=== PATIENT | female | born 1950 | race Caucasian/White ===

== ENCOUNTER 2018-06-03 12:26 | Emergency (ER) | payer MEDICARE ==
[~2018-06-03] VITALS: Ht 170.2 cm; Wt 67.6 kg
--- OUTSIDE RECORDS SUMMARY | 2018-06-03 12:30 | XMS ---
PreManage Notification: AINSLYE FRANCOIS Security Creative Services Manager Events No recent Security Events currently on file CRITERIA MET - POL CARE PROVIDERS There are no care providers on record at this time. Jamil has no Care Guidelines for this patient. Viktoriya VISIT COUNT (12 MO.) 1 TEOFILO Lopez TOTAL 1 NOTE: Visits indicate total known visits. ED/C VISIT TRACKING (12 MO.) 06/03/2018 12:26 [facility] [place] TYPE: Emergency COMPLAINT: - STROKE SYMPTOMS INPATIENT VISIT TRACKING (12 MO.) No inpatient visits to display in this time frame [id number]
[2018-06-03] MEDS ORDERED: ASPIRIN81 MG PO (13:39)
[2018-06-03] MEDS ORDERED: ESTRACE TOP (13:40)
[2018-06-03] MEDS ORDERED: METOPROLOL SUCC25 MG PO (13:41)
--- NOTE | 2018-06-03 15:01 | NUR ---
WAS CALLED IN FOR PT HAVING STROKE SYMPTOMS. I WAS TOLD UPON ARRIVAL THAT FAMILY HAD BEEN NOTIFIED, I DECIDED I WOULD CALL FAMILY ANY WAYS TO GET ETA. FAMILY HAD NOT BEEN NOTIFIED AND CAME TO THE HOSPITAL IMMEDIATELY. PT WAS TRANSFERRED VIA [facility]. I GAVE THE FAMILY DIRECTIONS TO THE HOSPITAL THAT PT IS BEING TRANSFERRED TO WELL A [facility] PACK LIST. PT ASKED THAT HER HUMAN FACTORS ADVISOR LEAD, DAVID, AT [facility] BE NOTIFIED OF HER CONDITION. I WAS ABLE TO MAKE CONTACT WITH THE CONGREGATIONAL AND LET THEM KNOW THAT SHE WAS BEING SENT TO A HOSPITAL IN [place]. THEY STATED THAT THEY WOULD FOLLOW UP WITH FAMILY.
--- NOTE | 2018-06-03 22:18 | EKG ---
[facility] [address] [facility] [place], [place] [address] Signed Normal sinus rhythm Normal ECG No previous ECGs available Confirmed by YANET SHERMAN DO ([id number]) on 06/03/2018 10:18:43 PM Electronically Signed By: YANET SHERMAN DO 06/03/18 2218 PATIENT NAME: AINSLEY FRANCOIS Electrocardiogram DATE OF : 46 PHYSICIAN: YANET SHERMAN DO REPORT #: [id number] REPORT IS CONFIDENTIAL AND NOT TO BE RELEASED WITHOUT AUTHORIZATION
== END 2018-06-03 15:14 | disposition short-term general hospital (02) ==
LOC: ED 12:26
PROC: 0T9B70Z Drainage of Bladder with Drainage Device, Via Natural or Artificial Opening (ICD-10-PCS; principal; 2018-06-03)
PROC: 4A0D7LZ Measurement of Urinary Volume, Via Natural or Artificial Opening (ICD-10-PCS; 2018-06-03)
DX: I63.9 Cerebral infarction, unspecified (principal); I48.91 Unspecified atrial fibrillation; Z87.891 Personal history of nicotine dependence; Z91.040 Latex allergy status; Z79.82 Long term (current) use of aspirin; Z79.899 Other long term (current) drug therapy
CPT/HCPCS: 51702; 51798; 70450; 70496; 70498; 71045; 80053; 84484; 85025; 85610; 85730; 93005; 93010; 96374; 99285-25; J2997; Q9967

== ENCOUNTER 2018-06-26 07:45 | Emergency (ER) | payer MEDICARE ==
[~2018-06-26] VITALS: Ht 170.2 cm; Wt 68.0 kg
[~2018-06-26 07:45] MED LIST: ASPIRIN81 MG PO; ESTRACE TOP; METOPROLOL SUCC25 MG PO
--- OUTSIDE RECORDS SUMMARY | 2018-06-26 07:48 | XMS ---
PreManage Notification: AINSLEY FRANCOIS Security Felt Cementer Events No recent Security Events currently on file CRITERIA MET - [facility] - 2 Visits in 30 Days CARE PROVIDERS UGO FRIAS [facility] 06/03/2018-Current PHONE: [phone] Jamil has no Care Guidelines for this patient. Viktoriya VISIT COUNT (12 MO.) [address] [facility] [place] [facility] TOTAL 2 NOTE: Visits indicate total known visits. ED/UCC VISIT TRACKING (12 MO.) 06/26/2018 07:46 [facility] [place] TYPE: Emergency COMPLAINT: - STROKE SYMPTOMS 06/03/2018 12:26 [facility] [place] TYPE: Emergency COMPLAINT: - STROKE SYMPTOMS DIAGNOSES: - Latex allergy status - residential (current) use of aspirin - Weakness - Unspecified atrial fibrillation - Personal history of nicotine dependence - Cerebral infarction, unspecified - Other oil heaterman (current) drug therapy INPATIENT VISIT TRACKING (12 MO.) 06/03/2018 17:56 [facility] [place] TYPE: Neuro Surgery DIAGNOSES: - Cerebral infarction due to unspecified occlusion or stenosis of right middle cerebral artery - Paroxysmal atrial fibrillation - Cerebral infarction, unspecified 06/03/2018 16:45 [facility] [place] TYPE: Surgery DIAGNOSES: - Cerebral infarction due to thrombosis of unspecified precerebral artery [id number]
[2018-06-26] MEDS ORDERED: ASPIRIN325 MG PO (08:02)
[2018-06-26] MEDS ORDERED: FLECAINIDE ACET50 MG PO (08:03)
[2018-06-26] MEDS ORDERED: METOPROLOL SUCC25 MG PO (08:04)
[2018-06-26] MEDS ORDERED: LIPITOR10 MG PO (08:05)
--- NOTE | 2018-06-26 12:57 | EKG ---
[facility] [address] [facility] [place], [place] [address] Signed Sinus bradycardia with marked sinus arrhythmia with 1st degree AV block Otherwise normal ECG When compared with ECG of 03-JUN-2018 13:04, No significant change was found Confirmed by KIAH POSADA MD ([id number]) on 06/26/2018 12:57:32 PM Electronically Signed By: KIAH POSADA MD 06/26/18 1257 PATIENT NAME: AINSLEY FRANCOIS Electrocardiogram DATE OF : 46 PHYSICIAN: KIAH POSADA MD REPORT #: [id number] REPORT IS CONFIDENTIAL AND NOT TO BE RELEASED WITHOUT AUTHORIZATION
== END 2018-06-26 08:35 | disposition home or self-care (01) ==
LOC: ED 07:45
DX: I10 Essential (primary) hypertension (principal); I48.91 Unspecified atrial fibrillation; Z86.73 Personal history of transient ischemic attack (TIA), and cerebral infarction without residual deficits; Z87.891 Personal history of nicotine dependence; Z91.040 Latex allergy status; Z79.82 Long term (current) use of aspirin; Z79.899 Other long term (current) drug therapy
CPT/HCPCS: 93005; 93010; 99283-25

== ENCOUNTER 2018-08-15 05:23 | Emergency (ER) | payer MEDICARE ==
[~2018-08-15] VITALS: Ht 170.2 cm; Wt 68.0 kg
--- OUTSIDE RECORDS SUMMARY | ~2018-08-15 | XMS | Encounter Summary ---
Demographics + + + | Address | [address] | | | [place] [address] | + + + | Home Phone | | + + + | Preferred Language | Unknown | + + + | Marital Status | | + + + | Restorationist Affiliation | Unknown | + + + | Race | Unknown | + + + | Ethnic Group | Unknown | + + + Author + + + | Author | [facility] [employer] [facility] | + + + | Organization | [facility] [employer] [facility] | + + + | Address | Unknown | + + + | Phone | Unavailable | + + + Support + + + + + | Name | Relationship | Address | Phone | + + + + + | Parker Myles | ECON | [address] | | | | | [place] | | | | | [address] | | + + + + + Care Team Providers + +------+ + | Care Director Embalmer Name | Role | Phone | + +------+ + | Bc Cano MD | PCP | | + +------+ + Reason for Visit + + + | Reason | Comments | + + + | Atrial Fibrillation | | + + + Encounter Details +--------+ + + + + | Date | Type | Department | Care Team | Description | +--------+ + + + + | 01/29/ | Telephone | [facility] | Noemy Bae DO | Atrial Fibrillation | | 2019 | | Cardiology [facility] | [address] | | | | | [address] | [place], [place] | | | | | [place], [place] | [address] | | | | | [address] | | | | | | [phone] | | | +--------+ + + + + Social History + +-------+ +--------+ + | Tobacco Use | Types | Packs/Day | Years | Date | | | | | Used | | + +-------+ +--------+ + | Former Smoker | | 0.5 | 5 | Quit: 1972 | + +-------+ +--------+ + + +---+---+---+ | Smokeless Tobacco: | | | | | Never Used | | | | + +---+---+---+ + + | Comments: QUIT SMOKING CIGARETTES IN 1971 | + + + + +---------+ + | Alcohol Use | Drinks/We | oz/Week | Comments | | | ek | | | + + +---------+ + | No | | | | + + +---------+ + + + + | Sex Assigned at | Date Recorded | | | | + + + | Not on file | | + + + as of this encounter Plan of Treatment +--------+---------+ + + + | Date | Type | Specialty | Care Team | Description | +--------+---------+ + + + | 08/22/ | Office | Cardiology | Abran Herzog, | | | 2018 | Visit | | MD [address] | | | | | | [place], | | | | | | [place] [address] | | | | | | [phone] | | | | | | | | +--------+---------+ + + + as of this encounter Visit Diagnoses Not on filein this encounter"
--- OUTSIDE RECORDS SUMMARY | ~2018-08-15 | XMS | Encounter Summary ---
Demographics + + + | Address | [address] | | | [place] [address] | + + + | Home Phone | | + + + | Preferred Language | Unknown | + + + | Marital Status | | + + + | Mu-Ism Affiliation | Unknown | + + + | Race | Unknown | + + + | Ethnic Group | Unknown | + + + Author + + + | Author | [facility] | + + + | Organization | [facility] | + + + | Address | Unknown | + + + | Phone | Unavailable | + + + Support + + + + + | Name | Relationship | Address | Phone | + + + + + | Parker Myles | ECON | [address] | | | | | [place] | | | | | [address] | | + + + + + Care Team Providers + +------+ + | Care Buffing Wheel Former Machine Name | Role | Phone | + +------+ + | Bc Cano MD | PCP | | + +------+ + Reason for Visit + + + | Reason | Comments | + + + | Cardiac Event | end of study | | Monitor | | + + + Encounter Details +--------+ + + + + | Date | Type | Department | Care Team | Description | +--------+ + + + + | 01/24/ | Documentati | [facility] | Herberreji Paola R, | Cardiac Event | | 2019 | on Only | Cardiology [place] | RT | Monitor (end of | | | | [address] | | study) | | | | [place], [place] | | | | | | [address] | | | | | | [phone] | | | +--------+ + + + [...] + + + as of this encounter Progress Notes Paola Bal RT - 06/23/2018 11:59 PM PST Cardiac Centerpuncher Date of Event Monitor: 06/23/18 Referring Physician: Alyssa Patient:Christina Myles : 1950 Age: 67 y.o. female INDICATIONS: Paroxysmal Atrial fibrillation. Associated attestation - Abran Herzog MD - 07/27/2018 1:11 PM PSTA cardiac rhythm anal ysis was performed on 2 leads for 30 days, corresponding to > 2.4 million beats. During the monitored time period, 97.16% of the total recording yielded tracings that were capable of b eing analyzed, which showed the following: The predominant rhythm was atrial fibrillation, with an overall burden of 73.57% (atrial fl utter very briefly on 07/22/18), with an average ventricular rate of 94 bpm, ranging from 52 - 153 bpm. A normal circadian rhythm was seen. A rapid ventricular rate was present for 22% the recording, with ventricular rates > 120 bpm present for 12% of the time, and ventricula r rates in excess of 140 bpm present for 2% of the recording. Sinus rhythm was present for 22.56% of the time. The average rate was 58 bpm. Sinus adalid cardia was present for 14.6% of the recording, with heart rates < 50 bpm present for 1% the recording. There was no evidence of atrioventricular block. No clinically significant pauses were note d, although there were a total of 1009 pauses greater than 2 seconds, to a maximum of 3.6 se conds, with 5 other pauses of 3.0 - 3.2 seconds duration, all in the setting of atrial fibri llation. There were 377 isolated PVCs, with an overall ventricular ectopy burden of < 0.01%. There were no complex ventricular arrhythmias noted. There were 29,237 isolated PACs, with an overall atrial ectopic rhythm burden of 0.93%. Th ere were 339 atrial couplets and 20 atrial triplets. There were 38 runs of paroxysmal atrial tachycardia during the monitored time period, the maximum duration of which was 15 consecut gilberto beats, at a rate of 98 bpm. The maximum recorded heart rate during any of these runs was a 7 beat run at a rate of 161 bpm. There were 6067 PACs in the setting of atrial bigeminy, and 1794 in atrial trigeminy. 7 episodes of symptoms were reported during the monitored time period, including 2 episodes of palpitations, one corresponding to atrial fibrillation and one to NSR. There was 1 epis ode of "fluttering", corresponding to atrial fibrillation. Atrial fibrillation was also see n with reported symptoms of SOB and fatigue. However, none of these symptomatic episodes oc curred with rapid ventricular rates, as the above corresponded to rates of 85 - 98 bpm. 2 o ther episodes of "headache" and "other" corresponded to sinus rhythym. No significant ST segment abnormalities were noted. CONCLUSION: This is an abnormal 30 day event monitor recording, with paroxysmal atrial fib rillation, and a high overall burden of 73.6%, but a predominantly well controlled ventricul ar rate. Sinus rhythm, predominantly sinus bradycardia, was present for 22.6% of the time. There were clinically insignificant (< 5 seconds) pauses during periods of atrial fibrillat ion. Her 7 episodes of reported symptoms did not clearly correlate with atrial fibrillation , as 3 of the 7 occurred in sinus rhythm. in this encounter Plan of Treatment +--------+---------+ + + + | Date | Type | Specialty | Care Team | Description | +--------+---------+ + + + | 08/22/ | Office | Cardiology | Abran Herzog, | | | 2018 | Visit | | MD [address] | | | | | | [place], | | | | | | [place] [address] | | | | | | [phone] | | | | | | | | +--------+---------+ + + + as of this encounter Visit Diagnoses + + | Diagnosis | + + | Paroxysmal atrial fibrillation (HCC) - Primary | + + | Atrial fibrillation | + +
--- OUTSIDE RECORDS SUMMARY | ~2018-08-15 | XMS | Clinical Summary ---
Demographics + + + | Address | [address] | | | [place] [address] | + + + | Home Phone | | + + + | Preferred Language | Unknown | + + + | Marital Status | | + + + | Zoroastrianism Affiliation | Unknown | + + + | Race | Unknown | + + + | Ethnic Group | Unknown | + + + Author + + + | Author | [facility] | | | [facility] [place] | + + + | Organization | [facility] | | | [facility] [place] | + + + | Address | Unknown | + + + | Phone | Unavailable | + + + Support + + + + + | Name | Relationship | Address | Phone | + + + + + | GEORGE FRANCOIS | ECON | Unknown | | + + + + + | Parker Francois | ECON | [address] | | | | | [place] | | | | | [address] | | + + + + + Care Team Providers + +------+ + | Care Embryology Teacher Name | Role | Phone | + +------+ + PP | Unavailable | + +------+ + Allergies Not on File Current Medications Not on file Active Problems Not on file Social History + +-------+ +--------+------+ | Tobacco Use | Types | Packs/Day | Years | Date | | | | | Used | | + +-------+ +--------+------+ | Never Assessed | | | | | + +-------+ +--------+------+ + + + | Sex Assigned at | Date Recorded | | | | + + + | Not on file | | + + + Plan of Treatment + + + + + | Health Maintenance | Due Date | Last Done | Comments | + + + + + | Vaccine: | | | | | Dtap/Tdap/Td (1 - | 8 | | | | Tdap) | | | | + + + + + | Vaccine: Zoster (1 | | | | | of 2) | 9 | | | + + + + + | Vaccine: | | | | | Pneumococcal 65+ | 4 | | | | Low/Medium Risk (1 | | | | | of 2 - PCV13) | | | | + + + + + | Vaccine: Influenza | | | | | (#1) | 8 | | | + + + + + Results Not on filefrom Last 3 Months"
--- OUTSIDE RECORDS SUMMARY | ~2018-08-15 | XMS | Encounter Summary ---
Demographics + + + | Address | [address] | | | [place] [address] | + + + | Home Phone | | + + + | Preferred Language | Unknown | + + + | Marital Status | | + + + | Shinto Affiliation | Unknown | + + + | Race | Unknown | + + + | Ethnic Group | Unknown | + + + Author + + + | Author | [facility] | + + + | Organization | [facility] | + + + | Address | Unknown | + + + | Phone | Unavailable | + + + Support + + + + + | Name | Relationship | Address | Phone | + + + + + | Parker Myles | ECON | [address] | | | | | [place] | | | | | [address] | | + + + + + Care Team Providers + +------+ + | Care Clinical Data Programmer Name | Role | Phone | + [...] 01/24/ | Documentati | [facility] | Herbererji Paola R, | Cardiac Event | | 2019 | on Only | Cardiology [place] | RT | Monitor (end of | | | | [address] | | study) | | | | [place], [place] | | | | | | [address] | | | | | | [phone] | | | +--------+ + + + [...] RT - 06/23/2018 11:59 PM PST Cardiac B2B Sales Professional Date of Event Monitor: 06/23/18 Referring Physician: [...] | | | | | | [place] [address] | | | | | | [phone] | | | | | | | | +--------+---------+ + + + as of this encounter Visit Diagnoses + + | Diagnosis | + + | Paroxysmal atrial fibrillation (HCC) - Primary | + + | Atrial fibrillation | + +
--- OUTSIDE RECORDS SUMMARY | ~2018-08-15 | XMS | Encounter Summary ---
Demographics + + + | Address | [address] | | | [place] [address] | + + + | Home Phone | | + + + | Preferred Language | Unknown | + + + | Marital Status | | + + + | Mu-Ism Affiliation | Unknown | + + + | Race | Unknown | + + + | Ethnic Group | Unknown | + + + Author + + + | Author | [facility] | + + + | Organization | [facility] | + + + | Address | Unknown | + + + | Phone | Unavailable | + + + Support + + + + + | Name | Relationship | Address | Phone | + + + + + | Parker Myles | ECON | [address] | | | | | [place] | | | | | [address] | | + + + + + Care Team Providers + +------+ + | Care Network Pricing Consultant Name | Role | Phone | + +------+ + | Bc Cano MD | PCP | | + +------+ + Reason for Visit +--------+ + | Reason | Comments | +--------+ + | Other | [facility] | +--------+ + Encounter Details +--------+ + + + + | Date | Type | Department | Care Team | Description | +--------+ + + + + | 06/14/ | Documentati | [facility] [place] | Wendi Lynn MA | Other ([facility] | | 2019 | on Only | [facility] | | Family MED ) | | | | [address] | | | | | | [facility] [place] | | | | | | [address] | | | | | | [phone] | | | +--------+ + + + [...] + | Comments: QUIT SMOKING CIGARETTES IN 1972 | + + + + +---------+ + [...] Cardiology | Abran Herzog, | | | 2019 | Visit | | MD [address] | | | | | | [place], | | | | | | [place] [address] | | | | | | [phone] | | | | | | | | +--------+---------+ + + + as of this encounter Visit Diagnoses Not on filein this encounter"
--- OUTSIDE RECORDS SUMMARY | ~2018-08-15 | XMS | Encounter Summary ---
Demographics + + + | Address | [address] | | | [place] [address] | + + + | Home Phone | | + + + | Preferred Language | Unknown | + + + | Marital Status | | + + + | Confucianist Affiliation | Unknown | + + + | Race | Unknown | + + + | Ethnic Group | Unknown | + + + Author + + + | Author | [facility] | + + + | Organization | [facility] | + + + | Address | Unknown | + + + | Phone | Unavailable | + + + Support + + + + + | Name | Relationship | Address | Phone | + + + + + | Parker Myles | ECON | [address] | | | | | [place] | | | | | [address] | | + + + + + Care Team Providers + +------+ + | Care Emt B Name | Role | Phone | + +------+ + | Bc Cano MD | PCP | | + +------+ + Reason for Visit + + + | Reason | Comments | + + + | Cardiac Event | 30 days | | Monitor | | + + + Holter (Routine) +--------+--------+ + + + + | Status | Reason | Specialty | Diagnoses / | Referred By | Referred To | | | | | Procedures | Contact | Contact | +--------+--------+ + + + + | Closed | | Cardiology | Diagnoses | [place], | [facility] | | | | | 30 days | Abran Clark, | Cardiology | | | | | Procedures | MD [address] | | | | | ND XTRNL PT | [address] | [address] | | | | | ACTIVTD ECG | [address] | [address] | | | | | DWNLD W/R&I | [place], [place] | [place], | | | | | </30 DAYS | [address] | [place] [address] | | | | | ND EXT | Phone: | Phone: | | | | | ECG,PT | [phone] | [phone] | | | | | DEMAND | Fax: | Fax: | | | | | EVENT, SYMPT | [phone] | [phone] | | | | | MEMORY | | | | | | | LOOP, RECORD | | | | | | | ND XTRNL | | | | | | | MOBILE CV | | | | | | | TELEMETRY | | | | | | | W/I&REPORT | | | | | | | 30 DAYS CRD | | | | | | | EVENT | | | | | | | MONITOR | | | +--------+--------+ + + + + Encounter Details +--------+ + + + + | Date | Type | Department | Care Team | Description | +--------+ + + + + | 06/23/ | Documentati | [facility] | Abran Herzog, | Cardiac Event | | 2019 | on Only | Cardiology [place] | MD [address] | Monitor (30 days ) | | | | [address] | [place], | | | | | [facility] [address] | [place] [address] | | | | | [place] [address] | [phone] | | | | | [phone] | | | | | | | Elmira Sierra, | | | | | | MA | | +--------+ + + + + [...] + as of this encounter Progress Notes Elmira Sierra MA - 06/23/2018 4:00 PM PST30 day catalyst supervisor placed on patient. E OB/Billing information discussed. Instructions given and understood. Patient instructed to call Sun Number for any billing or monitor questions. in this encounter Plan of Treatment +--------+---------+ + + + | Date | Type | Specialty | Care Team | Description | +--------+---------+ + + + | 08/22/ | Office | Cardiology | Abran Herzog, | | | 2018 | Visit | | MD [address] | | | | | | [place], | | | | | | [place] [address] | | | | | | [phone] | | | | | | | | +--------+---------+ + + + as of this encounter Visit Diagnoses + + | Diagnosis | + + | Paroxysmal atrial fibrillation (HCC) | + + | Atrial fibrillation | + + | Cerebrovascular accident (CVA) due to embolism of right middle cerebral artery (HCC) | + +"
--- OUTSIDE RECORDS SUMMARY | ~2018-08-15 | XMS | Encounter Summary ---
Demographics + + + | Address | [address] | | | [place] [address] | + + + | Home Phone | | + + + | Preferred Language | Unknown | + + + | Marital Status | | + + + | Church Affiliation | Unknown | + + + | Race | Unknown | + + + | Ethnic Group | Unknown | + + + Author + + + | Author | [facility] | + + + | Organization | [facility] | + + + | Address | Unknown | + + + | Phone | Unavailable | + + + Support + + + + + | Name | Relationship | Address | Phone | + + + + + | Parker Myles | ECON | [address] | | | | | [place] | | | | | [address] | | + + + + + Care Team Providers + +------+ + | Care Mold Cleaner Name | Role | Phone | + [...] + | 06/14/ | Documentati | [facility] [place] | Wendi Lynn MA | Other ([facility] | | 2019 | on Only | [facility] | | Family MED ) | | | | [address] | | | | | | [facility] [place] | | | | | | [address] | | | | | | [phone] | | | +--------+ + + + [...] [place], | | | | | | [place] [address] | | | | | | [phone] | | | | | | | | +--------+---------+ + + + as of this encounter Visit Diagnoses Not on filein this encounter"
--- OUTSIDE RECORDS SUMMARY | ~2018-08-15 | XMS | Encounter Summary ---
Demographics + + + | Address | [address] | | | [place] [address] | + + + | Home Phone | | + + + | Preferred Language | Unknown | + + + | Marital Status | | + + + | Taoist Affiliation | Unknown | + + + | Race | Unknown | + + + | Ethnic Group | Unknown | + + + Author + + + | Author | [facility] | + + + | Organization | [facility] | + + + | Address | Unknown | + + + | Phone | Unavailable | + + + Support + + + + + | Name | Relationship | Address | Phone | + + + + + | Parker Myles | ECON | [address] | | | | | [place] | | | | | [address] | | + + + + + Care Team Providers + +------+ + | Care Controlled Area Checker Name | Role | Phone | + +------+ + | Bc Cano MD | PCP | | + +------+ + Encounter Details +--------+ + + + + | Date | Type | Department | Care Team | Description | +--------+ + + + + | 06/27/ | Telephone | [facility] | Noemy Bae DO | | | 2019 | | [facility] | [address] | | | | | CARDIOLOGY [address] | [place] | | | | | Yana Crespo | [id number] | | | | | [place] [address] | | | | | | [phone] | | | +--------+ + + + [...] | | | | | | [place] [address] | | | | | | [phone] | | | | | | | | +--------+---------+ + + + as of this encounter Visit Diagnoses Not on filein this encounter"
--- OUTSIDE RECORDS SUMMARY | ~2018-08-15 | XMS | Encounter Summary ---
Demographics + + + | Address | [address] | | | [place] [address] | + + + | Home Phone | | + + + | Preferred Language | Unknown | + + + | Marital Status | | + + + | Episcopalian Affiliation | Unknown | + + + | Race | Unknown | + + + | Ethnic Group | Unknown | + + + Author + + + | Author | [facility] | + + + | Organization | [facility] | + + + | Address | Unknown | + + + | Phone | Unavailable | + + + Support + + + + + | Name | Relationship | Address | Phone | + + + + + | Parker Myles | ECON | [address] | | | | | [place] | | | | | [address] | | + + + + + Care Team Providers + +------+ + | Care Certified Green Building Engineer Name | Role | Phone | + +------+ + | Bc Cano MD | PCP | | + +------+ + Reason for Visit +--------+ + | Reason | Comments | +--------+ + | Other | [facility] | +--------+ + Encounter Details +--------+ + + + + | Date | Type | Department | Care Team | Description | +--------+ + + + + | 07/06/ | Documentati | [facility] | Stephenie Pichardo, | Other ([facility] | | 2019 | on Only | Cardiology Saima | VICE PRESIDENT OF FINANCE | Family Medicine) | | | | [address] | | | | | | [place] | | | | | | [address] | | | | | | [phone] | | | +--------+ + + + [...] [place], | | | | | | [place] [id number] | | | | | | [phone] | | | | | | | | +--------+---------+ + + + as of this encounter Visit Diagnoses Not on filein this encounter"
--- OUTSIDE RECORDS SUMMARY | ~2018-08-15 | XMS | Encounter Summary ---
Demographics + + + | Address | [address] | | | [place] [address] | + + + | Home Phone | | + + + | Preferred Language | Unknown | + + + | Marital Status | | + + + | Pentecostal Affiliation | Unknown | + + + | Race | Unknown | + + + | Ethnic Group | Unknown | + + + Author + + + | Author | [facility] | + + + | Organization | [facility] | + + + | Address | Unknown | + + + | Phone | Unavailable | + + + Support + + + + + | Name | Relationship | Address | Phone | + + + + + | Parker Myles | ECON | [address] | | | | | [place] | | | | | [address] | | + + + + + Care Team Providers + +------+ + | Care Scrap Iron Loader Name | Role | Phone | + +------+ + | Bc Cano MD | PCP | | + +------+ + Reason for Visit + + + | Reason | Comments | + + + | Establish Care | paroxysmal atrial fib | + + + Consultation (Routine) + +--------+ + + + + | Status | Reason | Specialty | Diagnoses / | Referred By | Referred To | | | | | Procedures | Contact | Contact | + +--------+ + + + + | Authorized | | Cardiology | Diagnoses | [facility], | Alsam[place], | | | | | Paroxysmal | Bc Wilson, | MD Joseph | | | | | atrial | [address] | [address] | | | | | fibrillation | [address] | Dr Becerril | | | | | ([facility]) | [place], | [place], [place] | | | | | Procedures | [place] [address] | [address] Phone: | | | | | Consult | Phone: | [phone] | | | | | | [phone] | Fax: | | | | | | Fax: | [phone] | | | | | | [phone] | | + +--------+ + + + + Encounter Details +--------+ + + + + | Date | Type | Department | Care Team | Description | +--------+ + + + + | 06/14/ | Initial | [facility] | Abran Herzog, | Paroxysmal atrial | | 2019 | consult | Cardiology Jeanette | [address] | fibrillation (HCC) | | | | [address] [facility] [address] | [place], | (Primary Dx); | | | | [place] [address] | [place] [address] | Cerebrovascular | | | | [place] [address] | [phone] | accident (CVA) due | | | | [phone] | | to embolism of right | | | | | | middle cerebral | | | | | | artery (HCC) | +--------+ + + + + Social [...] + + + as of this encounter Last Filed Vital Signs + + + + | Vital Sign | Reading | Time Taken | + + + + | Blood Pressure | 98/56 | 06/14/2018 2:16 PM PST | + + + + | Pulse | 60 | 06/14/2018 2:10 PM PST | + + + + | Temperature | - | - | + + + + | Respiratory Rate | - | - | + + + + | Oxygen Saturation | 100% | 06/14/2018 2:10 PM PST | + + + + | Inhaled Oxygen | - | - | | Concentration | | | + + + + | Weight | 71.3 kg (157 lb 3.2 | 06/14/2018 2:10 PM PST | | | oz) | | + + + + | Height | 168.9 cm (5' 6.5") | 06/14/2018 2:10 PM PST | + + + + | Body Mass Index | 24.99 | 06/14/2018 2:10 PM PST | + + + + in this encounter Progress Notes Abran Herzog MD - 06/14/2018 2:30 PM PSTFormatting of this note may be different from the original. Subjective: Patient ID: Christina Myles is a 67 y.o. female. HPI The following portions of the patient's history were reviewed and updated as appropriate an d is available elsewhere in the record: allergies, current medications, past family history, past medical history, past social history, past surgical history and problem list. She was referred back in January for paroxysmal atrial fibrillation. Her palpitations be anuradha about a year before that, feeling "just a few little bumps, not very frequent". It did not cause any other symptoms or limit her activities in any way. It occurred only once ever y 2 months or so, briefly, and at one point she went 7 months between episodes. However, af ter she had it for 3 consecutive days last January, she went for a medical evaluation and was found to be in AFib. She was not started on oral anticoagulation, was only on ASA 81 mg "for long before this happened". 2 days before her embolic right CVA (06/03/18), she had pal pitations most of the day, but has had no palpitations since then. 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 She was given tPA and had an angiogram that showed no disease in her carotid s or cerebral circulation, with the exception of a right middle cerebral M1 branch occlusion , attributed to a cardiogenic embolic event from her paroxysmal atrial fibrillation. Unfort unately, starting her on oral anticoagulation, which is clearly indicated ([id number] VASc was 2 prior to her CVA, and is now 4), has to be deferred for a total of 2 months after her stro ke due to the risk of hemorrhagic transformation. We discussed this in detail. I increased her aspirin dose to 325 mg daily, as 81 mg has never been shown to be protective in any way , but the 325 mg dose will decrease her risk of a recurrent stroke by approximately 15%. Leydi gordillo is on Toprol, and had a normal echo 02/08/18, so I started her on flecainide 50 mg bid to t ry and maintain sinus rhythm. I sent a prescription for Eliquis 5 mg BID to her pharmacy, w ith instructions not to start it until 08/01/18, and to stop her aspirin at that time. She wi ll have a 30 day event monitor to see if she has other episodes of asymptomatic paroxysmal a trial fibrillation, and I will see her back afterwards for further evaluation. A TSH will b e done. 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 She has minimal neglect on the left side , but has otherwise had a near full recovery,with no other deficits. No h/o prior CVA/TIA, had Hernandez's palsy 2003. No h/o migraines, seizures, syncope. She had mild orthostatic dizzi ness shortly after starting metoprolol, no recurrence. No numbness, tingling, paresthesias. Vazquez's neuroma. EYES: No amaurosis, diplopia, recent visual changes, has cataracts, no h/o glaucoma ENT: No hearing loss, tinnitus, epistaxis, dysphagia ENDOCRINE: No history of diabetes. No history of thyroid disorders or other endocrine prob lems. No excessive hunger, thirst. PULMONARY/SLEEP: No dyspnea, orthopnea, paroxysmal nocturnal dyspnea. No history of asthm a, emphysema. No history of pneumonia. Denies apnea, significant snoring, daytime somnolence . Sleep is refreshing. CARDIOVASCULAR: Denies chest pain, pressure or discomfort. No history of CAD. No history of heart failure. Paroxysmal Atrial Fibrillation diagnosed in 02/15. No recurrent palpitatio ns since her CVA. ? history of a heart murmur, no h/o rheumatic fever. No history of hyper tension, she has mild Hyperlipidemia. No edema, no claudication symptoms. No h/o an AAA. -- Echo (02/08/18 - [facility]): EF 50-55%, normal RV size, function, normal LA, RA. Trace MR, TR, PI -- Lipid Panel (06/04/18): TC-206, LDL-140, HDL-47, TG-93 GASTROINTESTINAL: No recent abdominal pain, nausea, vomiting or diarrhea. Denies PUD, elena na, hematochezia, hepatitis. RENAL/: No history of kidney disease. No dysuria, hematuria, urinary urgency, hesitancy . Lichen sclerosis. Vaginal dryness, no other active christian science healer disorders. HEMATOLOGY/ONCOLOGY: No h/o bleeding disorders, DVT, PE. She notes easy bruisability, no significant bleeding. No history of anemia, transfusions. No history of cancer. MUSCULOSKELETAL: No myalgias, right forefinger arthralgias. No history of rheumatologic o r autoimmune diseases. CUTANEOUS: No rashes, pruritus, lesions. PSYCHIATRIC: No history of depression, anxiety or other psychiatric problems. Past Medical History Diagnosis Date Atrial fibrillation (HCC) paroxysmal, [id number] VASc 4 Cerebrovascular accident (CVA) (HCC) 06/03/2018 right frontal (MCA) embolic CVA, left nando-paresis/neglect, likely from AFib Unspecified visual disturbance EYEGLASSES Past Surgical History Procedure Laterality Date BREAST SURGERY Bilateral AUGMENTATION HYSTERECTOMY 1998 ovaries intact, had concomitant bladder repair REMOVAL IMPLANT Bilateral 03/11/2017 Procedure: REMOVAL IMPLANT; Surgeon: Jesus Bedolla MD; Location: [facility]; [facility] ce: Plastics; Laterality: Bilateral; breast implant removal SKIN LESION EXCISION facial, benign Family History Problem Relation Age of Onset Stroke Mother 75 Parkinson's disease Father Social History Substance Use Topics Smoking status: Former Smoker Packs/day: 0.50 Years: 5.00 Quit date: 1971 Smokeless tobacco: Never Used Comment: QUIT SMOKING CIGARETTES IN 1971 Alcohol use No Allergies Allergen Reactions Latex Itching Current Outpatient Prescriptions: aspirin 325 MG EC tablet, Take 325 mg by mouth daily with breakfast., Disp: , Rfl: atorvastatin (LIPITOR) 80 MG tablet, Take 80 mg by mouth nightly., Disp: , Rfl: clobetasol propionate (TEMOVATE) 0.05 % ointment, Apply topically 2 (two) times daily ., Disp: , Rfl: estradiol (ESTRACE) 0.1 MG/GM vaginal cream, Place 0.05 g vaginally daily., Disp: , Rf l: metoprolol (TOPROL-XL) 25 MG 24 hr tablet, Take 25 mg by mouth daily., Disp: , Rfl: Multiple Vitamins-Minerals (CENTRUM ADULTS PO), Take by mouth., Disp: , Rfl: apixaban (ELIQUIS) 5 MG tablet, Take 1 tablet by mouth 2 (two) times daily. Do not sta rt this medication until 08/01/18. Stop aspirin when you start this., Disp: 60 tablet, Rfl: 11 flecainide (TAMBOCOR) 50 MG tablet, Take 1 tablet by mouth 2 (two) times daily., Disp: 60 tablet, Rfl: 11 Objective: Physical Exam BP 98/56 (BP Location: Right upper arm, Patient Position: Sitting) | Pulse 60 | Ht 1.689 m (5' 6.5") | Wt 71.3 kg (157 lb 3.2 oz) | SpO2 100% | BMI 24.99 kg/m BP 110/62 left arm GENERAL: Well developed, well nourished, in no distress. Appears approximately stated age . HEENT: Normocephalic, atraumatic. EYES: PERRL, sclerae anicteric, no xanthelsasmas MOUTH: Oral mucosae moist, dentition adequate, no lesions noted NECK: No JVD, lymphadenopathy, thyromegaly, bruits. Carotid pulses are 2+ bilaterally LUNGS: Clear bilaterally, with no rales, rhonchi or wheezing noted, respirations unlabored HEART: Nondisplaced PMI, regular rate and rhythm, S1, S2 normal. No murmurs, rubs or gall ops noted. ABDOMEN: Soft, nontender, no organomegaly, masses or bruits. Bowel sounds are normal in a ll 4 quadrants. The abdominal aortic pulsation is not palpable. EXTREMITIES: No edema. Radial pulses 2+ bilaterally. Femoral pulses are 2+ bilaterally wi thout bruits. DP and PT pulses are 2+ bilaterally. SKIN: Warm and dry, capillary refill is normal, no lesions. NEUROLOGIC: Awake, alert and oriented x 3. No focal motor deficits. PSYCHIATRIC: Appropriate, affect appears normal EKG: sinus bradycardia, rate 59, normal EKG Assessment and Plan: Christina was seen today for establish care. 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 - apixaban (ELIQUIS) 5 MG tablet; Take 1 tablet by mouth 2 (two) times daily. Do not st art this medication until 08/01/18. Stop aspirin when you start this. in this encounter Plan of Treatment +--------+---------+ + + + | Date | Type | Specialty | Care Team | Description | +--------+---------+ + + + | 08/22/ | Office | Cardiology | Abran Herzog, | | | 2018 | Visit | | MD [address] | | | | | | [place], | | | | | | [place] [address] | | | | | | [phone] | | | | | | | | +--------+---------+ + + + + +--------+ + + | Name | Priori | Associated Diagnoses | Order Schedule | | | ty | | | + +--------+ + + | Electrocardiogram, 12-lead | Routin | Paroxysmal atrial | Ordered: 06/14/2018 | | | e | fibrillation (HCC) | | + +--------+ + + | CRD Cardiac Event Monitor | Routin | Paroxysmal atrial | Expected: | | | e | fibrillation (HCC) | 06/21/2018, Expires: | | | | Cerebrovascular | 06/14/2019 | | | | accident (CVA) due | | | | | to embolism of right | | | | | middle cerebral | | | | | artery (HCC) | | + +--------+ + + | TSH | Routin | Paroxysmal atrial | Expected: | | | e | fibrillation (HCC) | 06/14/2018, Expires: | | | | | 06/14/2019 | + +--------+ + + as of this encounter Visit Diagnoses + + | Diagnosis | + + | Paroxysmal atrial fibrillation (HCC) - Primary | + + | Atrial fibrillation | + + | Cerebrovascular accident (CVA) due to embolism of right middle cerebral artery (HCC) | + +
--- OUTSIDE RECORDS SUMMARY | ~2018-08-15 | XMS | Encounter Summary ---
Demographics + + + | Address | [address] | | | [place] [address] | + + + | Home Phone | | + + + | Preferred Language | Unknown | + + + | Marital Status | | + + + | Confucianist Affiliation | Unknown | + + + | Race | Unknown | + + + | Ethnic Group | Unknown | + + + Author + + + | Author | [facility] | + + + | Organization | [facility] | + + + | Address | Unknown | + + + | Phone | Unavailable | + + + Support + + + + + | Name | Relationship | Address | Phone | + + + + + | Parker Myles | ECON | [address] | | | | | [place] | | | | | [address] | | + + + + + Care Team Providers + +------+ + | Care Bisque Brusher Name | Role | Phone | + +------+ + | Bc Cano MD | PCP | | + +------+ + Reason for Visit +--------+ + | Reason | Comments | +--------+ + | Other | [facility] records | +--------+ + Encounter Details +--------+ + + + + | Date | Type | Department | Care Team | Description | +--------+ + + + + | 06/20/ | Documentati | [facility] | Julianne Degroot, | Other ([facility] | | 2019 | on Only | Cardiology [place] | Medical Student | family medicine | | | | [address] | | records) | | | | [place] | | | | | | [address] | | | | | | [phone] | | | +--------+ + + + [...] | | | | | | [place] [id number] | | | | | | [phone] | | | | | | | | +--------+---------+ + + + as of this encounter Visit Diagnoses Not on filein this encounter"
--- OUTSIDE RECORDS SUMMARY | ~2018-08-15 | XMS | Encounter Summary ---
Demographics + + + | Address | [address] | | | [place] [address] | + + + | Home Phone | | + + + | Preferred Language | Unknown | + + + | Marital Status | | + + + | Mandaeism Affiliation | Unknown | + + + | Race | Unknown | + + + | Ethnic Group | Unknown | + + + Author + + + | Author | [facility] | + + + | Organization | [facility] | + + + | Address | Unknown | + + + | Phone | Unavailable | + + + Support + + + + + | Name | Relationship | Address | Phone | + + + + + | Parker Myles | ECON | [address] | | | | | [place] | | | | | [address] | | + + + + + Care Team Providers + +------+ + | Care Medical Charge Entry Specialist Name | Role | Phone | + +------+ + | Bc Cano MD | PCP | | + +------+ + Encounter Details +--------+ + + + + | Date | Type | Department | Care Team | Description | +--------+ + + + + | 06/27/ | Telephone | [facility] | Noemy Bae DO | | | 2019 | | [facility] | [address] | | | | | CARDIOLOGY [address] | [place] | | | | | Yana Crespo | [id number] | | | | | [place] [address] | | | | | | [phone] | | | +--------+ + + + [...] | | | | | | [place] [address] | | | | | | [phone] | | | | | | | | +--------+---------+ + + + as of this encounter Visit Diagnoses Not on filein this encounter"
--- OUTSIDE RECORDS SUMMARY | ~2018-08-15 | XMS | Encounter Summary ---
Demographics + + + | Address | [address] | | | [place] [address] | + + + | Home Phone | | + + + | Preferred Language | Unknown | + + + | Marital Status | | + + + | Baptist Affiliation | Unknown | + + + | Race | Unknown | + + + | Ethnic Group | Unknown | + + + Author + + + | Author | [facility] | + + + | Organization | [facility] | + + + | Address | Unknown | + + + | Phone | Unavailable | + + + Support + + + + + | Name | Relationship | Address | Phone | + + + + + | Parker Myles | ECON | [address] | | | | | [place] | | | | | [address] | | + + + + + Care Team Providers + +------+ + | Care Food Truck Caterer Name | Role | Phone | + +------+ + | Bc Cano MD | PCP | | + +------+ + Reason for Visit + + + | Reason | Comments | + + + | Follow-up | afib | + + + Encounter Details +--------+---------+ + + + | Date | Type | Department | Care Team | Description | +--------+---------+ + + + | 07/18/ | Office | [facility] | Abran Herzog, | Paroxysmal atrial | | 2019 | Visit | Cardiology [facility] | [address] | fibrillation (HCC) | | | | [address] | [place], | (Primary Dx); | | | | [place] | [place] [address] | Cerebrovascular | | | | [address] | [phone] | accident (CVA) due | | | | [phone] | | to embolism of right | | | | | | middle cerebral | | | | | | artery (HCC); | | | | | | Generalized anxiety | | | | | | disorder | +--------+---------+ + + + Social History + +-------+ [...] + + + | Blood Pressure | 110/56 | 07/18/2018 12:01 PM PST | + + + + | Pulse | 60 | 07/18/2018 12:01 PM PST | + + + + | Temperature | - | - | + + + + | Respiratory Rate | - | - | + + + + | Oxygen Saturation | 99% | 07/18/2018 12:01 PM PST | + + + + | Inhaled Oxygen | - | - | | Concentration | | | + + + + | Weight | 70.5 kg (155 lb 6.4 | 07/18/2018 12:01 PM PST | | | oz) | | + + + + | Height | 167.6 cm (5' 6") | 07/18/2018 12:01 PM PST | + + + + | Body Mass Index | 25.08 | 07/18/2018 12:01 PM PST | + + + + in this encounter Progress Notes Abran Herzog MD - 07/18/2018 11:45 AM PSTFormatting of this note may be different from the original. Subjective: Patient ID: Christina Myles is a 67 y.o. female. HPI The following portions of the patient's history were reviewed and updated as appropriate an d is available elsewhere in the record: allergies, current medications, past family history, past medical history, past social history, past surgical history and problem list. Mrs. Myles, accompanied by her , returned to the office today for a follow-up visit for her paroxysmal atrial fibrillation. Her palpitations began about January,, feeli ng "just a few little bumps, not very frequent". It did not cause any other symptoms or escobedo it her activities in any way. It occurred only once every 2 months or so, briefly, and at o ne point she went 7 months between episodes. However, after she had it for 3 consecutive da ys last January, she went for a medical evaluation and was found to be in AFib. She was n ot started on oral anticoagulation, was only on ASA 81 mg "for long before this happened". 2 days before her embolic right CVA (06/03/18), she had palpitations most of the day. She had a large right MCA stroke, with left hemiparesis, was taken to [facility] in [place]. She was given tPA and had an angiogram that showed no disease in her carotids or cerebral circulation, with the exception of a right middle cerebral M1 branch occlusion, attributed to a cardiogenic embolic event from her paroxysmal atrial fibrillation. Unfortun ately, starting her on oral anticoagulation, which is clearly indicated ([id number] VASc was 2 prior to her CVA, and is now 4), had to be deferred for a total of 2 months after her stroke due to the risk of hemorrhagic transformation, but she is now on Eliquis 5 mg BID (this was done after Dr. Bae spoke with her neurosurgeon, Dr. Veliz - she reported being in AFib f or 10 consecutive days at that time). She is on Toprol, and had a normal echo 02/08/18, so I started her on flecainide 50 mg bid to try and maintain sinus rhythm. She saw Dr. Emmanuel pretty 06/27/18 and was found to be in afib, with normal intervals on EKG. Dr. Noemy Bae was co ntacted, as I was out of town, and advised him to increase the flecainide to 100 mg po bid a nd repeat and EKG within a week, but it was stopped the next day after she became anxious an d called Dr. Bae the next day. She has been started on Cardizem CD 120 mg. she has felt w ell for the last week. She had a 30 day event monitor applied 06/23/18, still monitoring, wi th paroxysmal AFib noted on at least 2 alerts, with a controlled RVR. It is symptomatic, fe eling "flip-flops", prolonged around 06/27/18, that lasted several days, but has not been fee ling it for the last week. A TSH has still not been done, and she was reminded to have it d rawn. She is almost out of Alprazolam, and she takes for anxiety and sleep, and is quite an xious that she will run out. I declined to renew it for her, she will call Dr. Cano for this purpose. I will see her back in a few weeks, after the end of her 30 day monitoring, to review the results. Review of Systems CONSTITUTIONAL: 7 lb weight [...] Lichen sclerosis. 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 HEMATOLOGY/ONCOLOGY: No h/o bleeding disorders, DVT, PE. She notes easy bruisability, no significant bleeding. No history of anemia, transfusions. No history of cancer. MUSCULOSKELETAL: No myalgias, right forefinger arthralgias. No history of rheumatologic o r autoimmune diseases. CUTANEOUS: No rashes, pruritus, lesions. PSYCHIATRIC: No history of depression, anxiety or other psychiatric problems. Past Medical History Diagnosis Date Anxiety disorder, unspecified Atrial fibrillation (HCC) paroxysmal, [id number] VASc 4 Cerebrovascular accident (CVA) (HCC) 06/03/2018 right frontal (MCA) embolic CVA, left nando-paresis/neglect, likely from AFib Unspecified visual disturbance EYEGLASSES Past Surgical History Procedure Laterality Date BREAST SURGERY Bilateral AUGMENTATION HYSTERECTOMY 1998 ovaries intact, had concomitant bladder repair REMOVAL IMPLANT Bilateral 03/11/2017 Procedure: REMOVAL IMPLANT; Surgeon: Jesus Bedolla MD; [facility]; Laterality: Bilateral; breast implant removal SKIN LESION EXCISION facial, benign Family History Problem Relation Age of Onset Stroke Mother 75 Parkinson's disease Father Social History Substance Use Topics Smoking status: Former Smoker Packs/day: 0.50 Years: 5.00 Quit date: 1971 Smokeless tobacco: Never Used Comment: QUIT SMOKING CIGARETTES IN 1971 Alcohol use No Allergies Allergen Reactions Latex Itching Current Outpatient Prescriptions: apixaban (ELIQUIS) 5 MG tablet, Take 1 tablet by mouth 2 (two) times daily. Do not sta rt this medication until 08/01/18. Stop aspirin when you start this., Disp: 60 tablet, Rfl: 11 atorvastatin (LIPITOR) 80 MG tablet, Take 80 mg by mouth nightly., Disp: , Rfl: clobetasol propionate (TEMOVATE) 0.05 % ointment, Apply topically 2 (two) times daily ., Disp: , Rfl: diltiazem (CARDIZEM CD) 120 MG 24 hr capsule, Take 120 mg by mouth daily., Disp: , Rfl : estradiol (ESTRACE) 0.1 MG/GM vaginal cream, Place 0.05 g vaginally daily., Disp: , Rf l: LORazepam (ATIVAN) 1 MG tablet, Take 1 mg by mouth every 6 (six) hours as needed for A nxiety., Disp: , Rfl: metoprolol (TOPROL-XL) 25 MG 24 hr tablet, Take 25 mg by mouth daily., Disp: , Rfl: Multiple Vitamins-Minerals (CENTRUM ADULTS PO), Take by mouth., Disp: , Rfl: Objective: Physical Exam BP 110/56 (BP Location: Left upper arm, Patient Position: Sitting) | Pulse 60 | Ht 1.676 m (5' 6") | Wt 70.5 kg (155 lb 6.4 oz) | SpO2 99% | BMI 25.08 kg/m GENERAL: Well developed, well nourished, in no [...] deficits. PSYCHIATRIC: Appropriate, affect appears normal EKG: NSR, rate 60, first degree AV block, possible left atrial enlargement, otherwise crystal l EKG Assessment and Plan: Christina was seen today for follow-up. 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 (HCC) Generalized anxiety disorder in this encounter Plan of Treatment +--------+---------+ + + + | Date | Type | Specialty | Care Team | Description | +--------+---------+ + + + | 08/22/ | Office | Cardiology | Abran Herzog, | | | 2018 | Visit | | MD [address] | | | | | | [place], | | | | | | [place] [address] | | | | | | [phone] | | | | | | | | +--------+---------+ + + + as of this encounter Procedures + +--------+ + + + | Procedure Name | Priori | Date/Time | Associated Diagnosis | Comments | | | ty | | | | + +--------+ + + + | EKG STANDARD 12 LEAD | Routin | 07/18/2018 | Paroxysmal atrial | Results for this | | | e | 12:04 PM | fibrillation (HCC) | procedure are in the | | | | PST | | results section. | + +--------+ + + + in this encounter Results EKG STANDARD 12 LEAD (07/18/2018 12:04 PM) + + + + + | Component | Value | Ref Range | Performed At | + + + + + | Ventricular Rate | 60 | BPM | [facility] | + + + + + | Atrial Rate | 60 | BPM | [facility] | + + + + + | P-R Interval | 216 | ms | [facility] | + + + + + | QRS Duration | 90 | ms | [facility] | + + + + + | Q-T Interval | 426 | ms | [facility] | + + + + + | QTC Calculation | 426 | ms | [facility] | | (Bezet) | | | | + + + + + | Calculated P [place] | 51 | degrees | [facility] | + + + + + | Calculated R [place] | 49 | degrees | [facility] | + + + + + | Calculated T [place] | 50 | degrees | [facility] | + + + + + | Diagnosis | Sinus rhythm with 1st | | [facility] | | | degree A-V | | | | | blockOtherwise normal | | | | | ECGWhen compared with | | | | | ECG of 14-JUN-2018 | | | | | 14:23,No significant | | | | | change was | | | | | foundConfirmed by [facility] | | | | | [place] Read Only, [facility] | | | | | Anthony ([id number]), news videotape editor | | | | | KAROL SINHA ([id number]) | | | | | on 07/18/2018 12:10:03 PM | | | | | | | | + + + + + + + + + + | Performing | Address | City/State/Zipcode | Phone Number | | Organization | | | | + + + + + | [facility] | [address] | [facility] [address] [place] [address] | | + + + + + in this encounter Visit Diagnoses + + | Diagnosis | + + | Paroxysmal atrial fibrillation (HCC) - Primary | + + | Atrial fibrillation | + + | Cerebrovascular accident (CVA) due to embolism of right middle cerebral artery (HCC) | + + | Generalized anxiety disorder | + +
--- OUTSIDE RECORDS SUMMARY | ~2018-08-15 | XMS | Encounter Summary ---
Demographics + + + | Address | [address] | | | [place] [address] | + + + | Home Phone | | + + + | Preferred Language | Unknown | + + + | Marital Status | | + + + | Yazidi Affiliation | Unknown | + + + | Race | Unknown | + + + | Ethnic Group | Unknown | + + + Author + + + | Author | [facility] | + + + | Organization | [facility] | + + + | Address | Unknown | + + + | Phone | Unavailable | + + + Support + + + + + | Name | Relationship | Address | Phone | + + + + + | Parker Myles | ECON | [address] | | | | | [place] | | | | | [address] | | + + + + + Care Team Providers + +------+ + | Care Shredder Picker Name | Role | Phone | + +------+ + | Bc Cano MD | PCP | | + +------+ + Encounter Details +--------+ + + + + | Date | Type | Department | Care Team | Description | +--------+ + + + + | 06/28/ | Telephone | [facility] | [facility] | | | 2019 | | Cardiology Lenora Naranjo [place] | | | | | [address] | | | | | | [place] | | | | | | [address] | | | | | | [phone] | | | +--------+ + + + + Social History + +-------+ +--------+ + | Tobacco Use | Types | Packs/Day | Years | Date | | | | | Used | | + +-------+ +--------+ + | Former Smoker | | 0.5 | 5 | Quit: 1971 | + +-------+ +--------+ + + +---+---+---+ [...] | | | | | | [place] [id number] | | | | | | [phone] | | | | | | | | +--------+---------+ + + + as of this encounter Visit Diagnoses Not on filein this encounter"
--- OUTSIDE RECORDS SUMMARY | ~2018-08-15 | XMS | Clinical Summary ---
Demographics + + + | Address | [address] | | | [place] [address] | + + + | Home Phone | | + + + | Preferred Language | Unknown | + + + | Marital Status | | + + + | Religion Affiliation | Unknown | + + + | Race | Unknown | + + + | Ethnic Group | Unknown | + + + Author + + + | Author | [facility] | + + + | Organization | [facility] | + + + | Address | Unknown | + + + | Phone | Unavailable | + + + Support + + + + + | Name | Relationship | Address | Phone | + + + + + | Parker Francois | ECON | [address] | | | | | [place] | | | | | [address] | | + + + + + Care Team Providers + +------+ + | Care Complaint Supervisor Name | Role | Phone | + +------+ + | Bc Cano MD | PP | | + +------+ + Allergies + + + + + + | Active Allergy | Reactions | Severity | Noted | Comments | | | | | Date | | + + + + + + | Latex | Itching | Medium | 02/26/20 | | | | | | 17 | | + + + + + + Current Medications + + +--------+---------+------+------+-------+ | Prescription | Sig. | Disp. | Refills | Star | End | Statu | | | | | | t | Date | s | | | | | | Date | | | + + +--------+---------+------+------+-------+ | estradiol | Place 0.05 g | | | | | Activ | | (ESTRACE) 0.1 MG/GM | vaginally daily. | | | | | e | | vaginal cream | | | | | | | + + +--------+---------+------+------+-------+ | atorvastatin | Take 80 mg by mouth | | | | | Activ | | (LIPITOR) 80 MG | nightly. | | | | | e | | tablet | | | | | | | + + +--------+---------+------+------+-------+ | metoprolol | Take 25 mg by mouth | | | | | Activ | | (TOPROL-XL) 25 MG 24 | daily. | | | | | e | | hr tablet | | | | | | | + + +--------+---------+------+------+-------+ | clobetasol | Apply topically 2 | | | | | Activ | | propionate | (two) times daily. | | | | | e | | (TEMOVATE) 0.05 % | | | | | | | | ointment | | | | | | | + + +--------+---------+------+------+-------+ | Multiple | Take by mouth. | | | | | Activ | | Vitamins-Minerals | | | | | | e | | (CENTRUM ADULTS PO) | | | | | | | + + +--------+---------+------+------+-------+ | apixaban (ELIQUIS) | Take 1 tablet by | 60 | 11 | / | | Activ | | 5 MG tablet | mouth 2 (two) times | tablet | | 10/17 | | e | | | daily. Do not start | | | 19 | | | | | this medication | | | | | | | | until 08/01/18. Stop | | | | | | | | aspirin when you | | | | | | | | start this. | | | | | | + + +--------+---------+------+------+-------+ | LORazepam (ATIVAN) | Take 1 mg by mouth | | | | | Activ | | 1 MG tablet | every 6 (six) hours | | | | | e | | | as needed for | | | | | | | | Anxiety. | | | | | | + + +--------+---------+------+------+-------+ | diltiazem | Take 120 mg by mouth | | | | | Activ | | (CARDIZEM CD) 120 MG | daily. | | | | | e | | 24 hr capsule | | | | | | | + + +--------+---------+------+------+-------+ | flecainide | Take 1 tablet by | 60 | 11 | 05/31 | 07/01 | Disco | | (TAMBOCOR) 50 MG | mouth 2 (two) times | tablet | | /20 | 20 | ntinu | | tablet | daily. | | | 19 | 19 | ed | + + +--------+---------+------+------+-------+ | aspirin 325 MG EC | Take 325 mg by mouth | | | | 07/01 | Disco | | tablet | daily with | | | | 8/20 | ntinu | | | breakfast. | | | | 19 | ed | + + +--------+---------+------+------+-------+ Active Problems + + + | Problem | Noted Date | + + + | Cerebrovascular accident (CVA) ([facility]) | 06/03/2018 | + + + + + | Overview: right frontal (MCA) embolic CVA, left | | nando-paresis/neglect, likely from AFib | + + + + + | Capsular contracture of breast implant | 01/29/2017 | + + + | Mechanical complication of breast device | 01/29/2017 | + + + + + | Overview: Added automatically from request for surgery [id number] | + + + +---+ | Atrial fibrillation (HCC) | | + +---+ + + | Overview: paroxysmal, [id number] VASc 4 | + + + +---+ | Anxiety disorder, unspecified | | + +---+ Encounters +--------+ + + + + | Date | Type | Specialty | Care Team | Description | +--------+ + + + + | 07/18/ | Office | | Abran Herzog, | Paroxysmal atrial | | 2019 | Visit | | MD | fibrillation (HCC) | | | | | | (Primary Dx); | | | | | | Cerebrovascular | | | | | | accident (CVA) due | | | | | | to embolism of right | | | | | | middle cerebral | | | | | | artery (HCC); | | | | | | Generalized anxiety | | | | | | disorder | +--------+ + + + + | 07/11/ | Documentati | | Momo Au | Cardiac Event | | 2019 | on Only | | | Monitor (urgent | | | | | | report ) | +--------+ + + + + | 07/06/ | Documentati | | Stephenie Pichardo | Christian Mcintosh | 2018 | on Only | | CONTACT LENS INSPECTOR | Family Medicine) | +--------+ + + + + | 06/28/ | Telephone | | [place] | | 2018 | | | LORENA Naranjo | | +--------+ + + + + | 06/28/ | Telephone | | Noemy Bae DO | Atrial Fibrillation | | 2018 | | | | | +--------+ + + + + | 06/27/ | Documentati | | [facility] | Cardiac Event | | 2018 | on Only | | | Monitor (urgent ) | +--------+ + + + + | 06/27/ | Telephone | | Noemy Bae DO | | 2018 | | | | | +--------+ + + + + | 06/23/ | Documentati | | Abran Herzog, | Cardiac Event | | 2018 | on Only | | [place] | Monitor (30 days ) | | | | | [place] | | +--------+ + + + + | 06/23/ | Documentati | | Paola Bal, | Cardiac Event | | 2018 | on Only | | RT | Monitor (end of | | | | | | study) | +--------+ + + + + | 06/20/ | Documentati | | Julianne Degroot, | Other ([facility] | | 2019 | on Only | | Medical Student | family medicine | | | | | | records) | +--------+ + + + + | 06/14/ | Initial | | Abran Herzog, | Paroxysmal atrial | | 2018 | consult | | | fibrillation (HCC) | | | | | | (Primary Dx); | | | | | | Cerebrovascular | | | | | | accident (CVA) due | | | | | | to embolism of right | | | | | | middle cerebral | | | | | | artery (HCC) | +--------+ + + + + | 06/14/ | Documentati | | Wendi Lynn MA | Other ([place] | | 2019 | on Only | | | Family MED ) | +--------+ + + + + from Last 3 Months Family History + + +------+ + | Medical History | Relation | Name | Comments | + + +------+ + | Parkinson's disease | Father | | | + + +------+ + | Stroke | Mother | | | + + +------+ + + +------+ + + | Relation | Name | Status | Comments | + +------+ + + | Brother | | Alive | | + +------+ + + | Father | | | pneumonia | | | | (Age | | | | | 56) | | + +------+ + + | Mother | | | | | | | (Age | | | | | 75) | | + +------+ + + | Son | | Alive | | + +------+ + + | Son | | Alive | | + +------+ + + Social History + +-------+ +--------+ [...] on file | | + + + Last Filed Vital Signs + + + + | Vital Sign | Reading | Time Taken | + + + + | Blood Pressure | 110/56 | 07/18/2018 12:01 PM PST | + + + + | Pulse | 60 | 07/18/2018 12:01 PM PST | + + + + | Temperature | 36.4 C (97.5 F) | 03/11/2017 11:35 AM PDT | + + + + | Respiratory Rate | 28 | 03/11/2017 11:35 AM PDT | + + + + | Oxygen [...] PM PST | + + + + Plan of Treatment +--------+---------+ + + + | Date | Type | Specialty | Care Team | Description | +--------+---------+ + + + | 08/22/ | Office | | Abran Herzog, | | | 2018 | Visit | | MD [address] | | | | | | [place], | | | | | | [place] [address] | | | | | | [phone] | | | | | | | | +--------+---------+ + + + + + + + + | Health Maintenance | Due Date | Last Done | Comments | + + + + + | Vaccine: | | | | | Dtap/Tdap/Td (1 - | 8 | | | | Tdap) | | | | + + + + + | Breast Cancer | | | | | Screening | 9 | | | | (Mammogram) | | | | + + + + + | Colon Cancer | | | | | Screening | 9 | | | | (Colonoscopy) | | | | + + + + + | Vaccine: Zoster (1 | | | | | of 2) | 9 | | | + + + + + | DEXA SCAN SCREENING | | | | | | 4 | | | + + + + + | Vaccine: | | | | | Pneumococcal 65+ | 4 | | | | Low/Medium Risk (1 | | | | | of 2 - PCV13) | | | | + + + + + | Vaccine: Influenza | 09/01/201 | | | | (#1) | 8 | | | + + + + + Procedures + +--------+ + + + | [...] section. | + +--------+ + + + from Last 3 Months Results EKG STANDARD 12 LEAD (07/18/2018 12:04 PM) + + + + + | Component | Value | Ref Range | Performed At | + + + + + | Ventricular Rate | 60 | BPM | [facility] | + + + + + | Atrial Rate | 60 | BPM | [facility] | + + + [...] + + + + | Calculated P [place] | 51 | degrees | [facility] | + + + + + | Calculated R [place] | 49 | degrees | [facility] | + + + + + | Calculated T [place] | 50 | degrees | [facility] | + + + + + | Diagnosis | Sinus rhythm with 1st | | [facility] | | | degree A-V | | | | | blockOtherwise normal | | | | | ECGWhen compared with | | | | | ECG of 14-JUN-2018 | | | | | 14:23,No significant | | | | | change was | | | | | foundConfirmed by [facility] | | | | | [place] Read Only, [facility] | | | | | Anthony ([id number]), rewrite editor | | | | | KAROL SIHNA ([id number]) | | | | | on 07/18/2018 12:10:03 PM | | | | | | | | + + + + + + + + + + | Performing | Address | City/State/Zipcode | Phone Number | | Organization | | | | + + + + + | [facility] | [address] | [place] [address] | | + + + + + from Last 3 Months Insurance + +--------+ +--------+ + + | Payer | Benefi | Subscriber | Type | Phone | Address | | | t Plan | ID | | | | | | / | | | | | | | Group | | | | | + +--------+ +--------+ + + | [place] | [place] - | [id number] | [employer] | +1- | [address] [address] [place] | | HEALTHCARE | [place] | | re | [phone] | [place] [address] | | | | | | | | | | HEALTH | | | | | | | CARE | | | | | + +--------+ +--------+ + + + +--------+ +--------+ + + | Guarantor Name | Accoun | Relation to | Date | Phone | Billing Address | | | t Type | Patient | of | | | | | | | | | | + +--------+ +--------+ + + | CHRISTINA FRANCOIS | Person | Self [birth year] Home: | [address] | | | al/Fam | | 1951 | +1- | [place], [place] | | | marissa | | | [address] | [address] | + +--------+ +--------+ + + | CHRISTINA FRANCOIS | Layo | Self | [birth year] | Home: | [address] | | | cs | | 9 | +- | [place] [address] | | | | | | [address] | | + +--------+ +--------+ + +
--- OUTSIDE RECORDS SUMMARY | ~2018-08-15 | XMS | Encounter Summary ---
Demographics + + + | Address | [address] | | | [place] [address] | + + + | Home Phone | | + + + | Preferred Language | Unknown | + + + | Marital Status | | + + + | Anglican Affiliation | Unknown | + + + | Race | Unknown | + + + | Ethnic Group | Unknown | + + + Author + + + | Author | [email or web address] | + + + | Organization | [email or web address] | + + + | Address | Unknown | + + + | Phone | Unavailable | + + + Support + + + + + | Name | Relationship | Address | Phone | + + + + + | Parker Myles | ECON | [address] | | | | | [place] | | | | | [address] | | + + + + + Care Team Providers + +------+ + | Care Automobile Rental Clerk Name | Role | Phone | + [...] | 2019 | on Only | [facility] [place] | Medical Student | family medicine | | | | [address] | | records) | | | | [place] | | | | | | [address] | | | | | | [phone] | | | +--------+ + + + [...] | | | | | | [place] [address] | | | | | | [phone] | | | | | | | | +--------+---------+ + + + as of this encounter Visit Diagnoses Not on filein this encounter"
--- OUTSIDE RECORDS SUMMARY | ~2018-08-15 | XMS | Encounter Summary ---
Demographics + + + | Address | [address] | | | [place] [address] | + + + | Home Phone | | + + + | Preferred Language | Unknown | + + + | Marital Status | | + + + | Christian Affiliation | Unknown | + + + | Race | Unknown | + + + | Ethnic Group | Unknown | + + + Author + + + | Author | [facility] | + + + | Organization | [facility] | + + + | Address | Unknown | + + + | Phone | Unavailable | + + + Support + + + + + | Name | Relationship | Address | Phone | + + + + + | Parker Myles | ECON | [address] | | | | | [place] | | | | | [address] | | + + + + + Care Team Providers + +------+ + | Care Drywall Contractor Name | Role | Phone | + [...] [place] | | | | | | [address] | | | | | | [phone] | | | +--------+ + + + [...] | | | | | | [place] [address] | | | | | | [phone] | | | | | | | | +--------+---------+ + + + as of this encounter Visit Diagnoses Not on filein this encounter"
--- OUTSIDE RECORDS SUMMARY | ~2018-08-15 | XMS | Encounter Summary ---
Demographics + + + | Address | [address] | | | [place] [address] | + + + | Home Phone | | + + + | Preferred Language | Unknown | + + + | Marital Status | | + + + | Hinduism Affiliation | Unknown | + + + | Race | Unknown | + + + | Ethnic Group | Unknown | + + + Author + + + | Author | [facility] | + + + | Organization | [facility] | + + + | Address | Unknown | + + + | Phone | Unavailable | + + + Support + + + + + | Name | Relationship | Address | Phone | + + + + + | Parkre Myles | ECON | [address] | | | | | [place] | | | | | [address] | | + + + + + Care Team Providers + +------+ + | Care Photo Printer Name | Role | Phone | + [...] Closed | | Cardiology | Diagnoses | [place], | [place] | | | | | 30 days | Abran Clark, | Cardiology | | | | | Procedures | MD [address] | | | | | HI XTRNL PT | [address] | [address] | | | | | ACTIVTD ECG | [address] | [address] | | | | | DWNLD W/R&I | [place], [place] | [place], | | | | | </30 DAYS | [address] | [place] [address] | | | | | HI EXT | Phone: | Phone: | | | | | ECG,PT | [phone] | [phone] | | | | | DEMAND | Fax: | Fax: | | | | | EVENT, SYMPT | [phone] | [phone] | | | | | MEMORY | | | | | | | LOOP, RECORD | | | | | | | HI XTRNL | | | | | | [...] | 2019 | on Only | Cardiology [place] | MD [address] | Monitor (30 days ) | | | | [address] | [place], | | | | | [facility] [address] | [place] [address] | | | | | [place] [address] | [phone] | | | | | [phone] | | | | | | | [...] MA - 06/23/2018 4:00 PM PST30 day monitor and storage bin tender placed on patient. E OB/Billing information discussed. Instructions given and understood. Patient instructed to call [employer] for any billing or monitor questions. in [...] | | | | | | [place] [address] | | | | | | [phone] | | | | | | | | +--------+---------+ + + + as of this encounter Visit Diagnoses + + | Diagnosis | + + | Paroxysmal atrial fibrillation (HCC) | + + | Atrial fibrillation | + + | Cerebrovascular accident (CVA) due to embolism of right middle cerebral artery (HCC) | + +"
--- OUTSIDE RECORDS SUMMARY | ~2018-08-15 | XMS | Clinical Summary ---
Demographics + + + | Address | [address] | | | [place] [address] | + + + | Home Phone | | + + + | Preferred Language | Unknown | + + + | Marital Status | | + + + | Orthodox Affiliation | Unknown | + + + | Race | Unknown | + + + | Ethnic Group | Unknown | + + + Author + + + | Author | [facility] | + + + | Organization | [facility] | + + + | Address | Unknown | + + + | Phone | Unavailable | + + + Support + + + + + | Name | Relationship | Address | Phone | + + + + + | Parker Francois | ECON | [address] | | | | | [place] | | | | | [address] | | + + + + + Care Team Providers + +------+ + | Care Manager Access Name | Role | Phone | + [...] + + + | Cerebrovascular accident (CVA) ([facility]) | 06/03/2018 | + + [...] Overview: Added automatically from request for surgery [id number] | + + + +---+ | Atrial fibrillation (HCC) | | + +---+ + + | Overview: paroxysmal, [id number] VASc 4 | + + + +---+ [...] | 2018 | on Only | | SET UP MECHANIC AUTOMATIC LINE | Family Medicine) | +--------+ + + [...] | | | | | | [place] [address] | | | | | | [phone] | | | | | | | [...] + + + + | Calculated P [place] | 51 | degrees | [facility] E[facility] | + + + + + | Calculated R [place] | 49 | degrees | [facility] E[facility] | + + + + + | Calculated T [place] | 50 | degrees | [facility] E[facility] [...] by I[employer] | | | | | Elton Read Only, ICA | | | | | Anthony ([id number]), research editor | | | | | KAROL SINHA ([id number]) | | | | | on 07/18/2018 12:10:03 PM | | | | | | | | + + + + + + + + + + | Performing | Address | City/State/Zipcode | Phone Number | | Organization | | | | + + + + + | [facility] | [address] | [place] [address] | | + + + + + [...] +--------+ +--------+ + + | [place] | [place] - | [phone] | Medica | [phone]- | [address] [address] [place] | | HEALTHCARE | [place] | | re | [address] | [place] [address] | | | | | | | [...] | marissa | | | [address] | [address] | + +--------+ +--------+ + + | CHRISTINA FRANCOIS | Layo | Self | [birth year] | Home: | [address] | | | cs | | 9 | +- | [place] [address] | | | | | | [address] | | + +--------+ +--------+ + +
--- OUTSIDE RECORDS SUMMARY | ~2018-08-15 | XMS | Encounter Summary ---
Demographics + + + | Address | [address] | | | [place] [address] | + + + | Home Phone | | + + + | Preferred Language | Unknown | + + + | Marital Status | | + + + | Shinto Affiliation | Unknown | + + + | Race | Unknown | + + + | Ethnic Group | Unknown | + + + Author + + + | Author | [facility] | + + + | Organization | [facility] | + + + | Address | Unknown | + + + | Phone | Unavailable | + + + Support + + + + + | Name | Relationship | Address | Phone | + + + + + | Parker Myles | ECON | [address] | | | | | [place] | | | | | [address] | | + + + + + Care Team Providers + +------+ + | Care Physical Integration Practitioner Name | Role | Phone | + +------+ + | Bc Cano MD | PCP | | + +------+ + Reason for Visit + + + | Reason | Comments | + + + | Cardiac Event | urgent report | | Monitor | | + + + Encounter Details +--------+ + + + + | Date | Type | Department | Care Team | Description | +--------+ + + + + | 02/11/ | Documentati | [facility] | [place] | Cardiac Event | | 2019 | on Only | Cardiology [place] | | Monitor (urgent | | | | [address] | | report ) | | | | [place], [place] | | | | | | [address] | | | | | | [phone] | | | +--------+ + + + [...] + as of this encounter Progress Notes Momo Au - 07/11/2018 11:59 PM PSTPt had report on 07/11/2018 at 13:22 for AFIB 30 day monitor placed on 06/23/2018 Will continue to monitor Associated attestation - Abran Herzog MD - 07/27/2018 12:44 PM PSTAfib confirmed, samantha nue monitoring. Reviewed. Abran Herzog MDin this encounter Plan of Treatment +--------+---------+ + + + | Date | Type | Specialty | Care Team | Description | +--------+---------+ + + + | 08/22/ | Office | Cardiology | Abran Herzog, | | | 2018 | Visit | | MD [address] | | | | | | [place], | | | | | | [place] [address] | | | | | | [phone] | | | | | | | | +--------+---------+ + + + as of this encounter Visit Diagnoses Not on filein this encounter"
--- OUTSIDE RECORDS SUMMARY | ~2018-08-15 | XMS | Clinical Summary ---
Demographics + + + | Address | [address] | | | [place] [address] | + + + | Home Phone | | + + + | Preferred Language | Unknown | + + + | Marital Status | | + + + | Hoahaoism Affiliation | Unknown | + + + | Race | Unknown | + + + | Ethnic Group | Unknown | + + + Author + + + | Author | [facility] | | | and [place] | + + + | Organization | [facility] | | | and [...] [place] | | | | | [address] | | + + + + + Care Team Providers + +------+ + | Care Data Input Clerk Name | Role | Phone | [...]
--- OUTSIDE RECORDS SUMMARY | ~2018-08-15 | XMS | Encounter Summary ---
Demographics + + + | Address | [address] | | | [place] [address] | + + + | Home Phone | | + + + | Preferred Language | Unknown | + + + | Marital Status | | + + + | Episcopalian Affiliation | Unknown | + + + | Race | Unknown | + + + | Ethnic Group | Unknown | + + + Author + + + | Author | [facility] | + + + | Organization | [facility] | + + + | Address | Unknown | + + + | Phone | Unavailable | + + + Support + + + + + | Name | Relationship | Address | Phone | + + + + + | Parker Myles | ECON | [address] | | | | | [place] | | | | | [address] | | + + + + + Care Team Providers + +------+ + | Care Flight Information Expediter Name | Role | Phone | + [...] | | | | | Paroxysmal | cB Wilson, | MD Joseph | | | | | atrial | [address] | [address] | | | | | fibrillation | [address] | Dr Becerril | | | | | ([facility]) | [place], | [place], [place] | | | | | Procedures | [place] [address] | [address] Phone: | | | | | Consult | Phone: | [phone] | | | | | | [phone] | Fax: | | | | | | Fax: | [phone] | | | | | | [phone] | | + +--------+ + + + + Encounter Details +--------+ + + + + | Date | Type | Department | Care Team | Description | +--------+ + + + + | 06/14/ | Initial | [facility] [place] | Abran Herzog, | Paroxysmal atrial | | 2019 | consult | Cardiology [place] | [address] | fibrillation (HCC) | | | | [address] [facility] [address] | [place], | (Primary Dx); | | | | [address] | [place] [address] | Cerebrovascular | | | | [place] [address] | [phone] | accident (CVA) due | | | | [phone] | | to embolism of right | [...] stroke, with left hemiparesis, was taken to [facility] in [place]. She was given tPA and had an angiogram that showed no disease in her carotid s or cerebral circulation, with the exception of a right middle cerebral M1 branch occlusion , attributed to a cardiogenic embolic event from her paroxysmal atrial fibrillation. Unfort unately, starting her on oral anticoagulation, which is clearly indicated ([id number] VASc was 2 prior to her CVA, [...] Lichen sclerosis. 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 HEMATOLOGY/ONCOLOGY: No h/o bleeding disorders, DVT, PE. She notes easy bruisability, no significant bleeding. No history of anemia, transfusions. No history of cancer. MUSCULOSKELETAL: No myalgias, right forefinger arthralgias. No history of rheumatologic o r autoimmune diseases. CUTANEOUS: No rashes, pruritus, lesions. PSYCHIATRIC: No history of depression, anxiety or other psychiatric problems. Past Medical History Diagnosis Date Atrial fibrillation (HCC) paroxysmal, [id number] VASc 4 Cerebrovascular accident (CVA) (HCC) 06/03/2018 right frontal (MCA) embolic CVA, left nando-paresis/neglect, likely from AFib Unspecified visual disturbance EYEGLASSES Past Surgical History Procedure Laterality Date BREAST SURGERY Bilateral AUGMENTATION HYSTERECTOMY 1998 ovaries intact, had concomitant bladder repair REMOVAL IMPLANT Bilateral 03/11/2017 Procedure: REMOVAL IMPLANT; Surgeon: Jesus Bedolla MD; Location: [facility] MAIN OR; [facility] ce: Plastics; Laterality: Bilateral; breast implant [...] | | | | | | [place] [address] | | | | | | [phone] | | | | | | | [...]
--- OUTSIDE RECORDS SUMMARY | ~2018-08-15 | XMS | Encounter Summary ---
Demographics + + + | Address | [address] | | | [place] [address] | + + + | Home Phone | | + + + | Preferred Language | Unknown | + + + | Marital Status | | + + + | Sabianist Affiliation | Unknown | + + + | Race | Unknown | + + + | Ethnic Group | Unknown | + + + Author + + + | Author | [facility] | + + + | Organization | [facility] | + + + | Address | Unknown | + + + | Phone | Unavailable | + + + Support + + + + + | Name | Relationship | Address | Phone | + + + + + | Parker Myles | ECON | [address] | | | | | [place] | | | | | [address] | | + + + + + Care Team Providers + +------+ + | Care Scale Reclamation Tender Name | Role | Phone | + +------+ + | Bc Cano MD | PCP | | + +------+ + Reason for Visit + + + | Reason | Comments | + + + | Cardiac Event | urgent | | Monitor | | + + + Encounter Details +--------+ + + + + | Date | Type | Department | Care Team | Description | +--------+ + + + + | 06/27/ | Documentati | [facility] | [place]o [place] | Cardiac Event | | 2019 | on Only | Cardiology [place] | | Monitor (urgent ) | | | | [address] | | | | | | [place], [place] | | | | | | [address] | | | | | | [phone] | | | +--------+ + + + [...] this encounter Progress Notes Momo Au - 06/27/2018 11:59 PM PSTPt had report for possible Asystole lasting 3.6 sec onds On 06/27/2018 at 11:48 Called pt feels shes in AFIB had apt with doctor and had increased flecainide. Pt is doe rned of increased heart rate with no activity. Has been resting. Medications Eliquis Metoprolol 50 mg tablet Associated attestation - Abran Herzog MD - 07/27/2018 12:58 PM PSTReviewed. With atria l fibrillation, pauses < 5 sec are not clinically significant in the setting of atrial fibri llation.in this encounter Plan of Treatment +--------+---------+ + + + | Date | Type | Specialty | Care Team | Description | +--------+---------+ + + + | 08/22/ | Office | Cardiology | Abran Herzog, | | | 2018 | Visit | | MD [address] | | | | | | [place], | | | | | | [place] [address] | | | | | | [phone] | | | | | | | | +--------+---------+ + + + as of this encounter Visit Diagnoses Not on filein this encounter"
--- OUTSIDE RECORDS SUMMARY | ~2018-08-15 | XMS | Encounter Summary ---
Demographics + + + | Address | [address] | | | [place] [address] | + + + | Home Phone | | + + + | Preferred Language | Unknown | + + + | Marital Status | | + + + | Mormonism Affiliation | Unknown | + + + | Race | Unknown | + + + | Ethnic Group | Unknown | + + + Author + + + | Author | [facility] | + + + | Organization | [facility] | + + + | Address | Unknown | + + + | Phone | Unavailable | + + + Support + + + + + | Name | Relationship | Address | Phone | + + + + + | Parker Myles | ECON | [address] | | | | | [place] | | | | | [address] | | + + + + + Care Team Providers + +------+ + | Care Sales Force Developer Name | Role | Phone | + [...] | 2019 | on Only | Cardiology [place] | | Monitor (urgent ) | | | | [address] | | | | | | [place], [place] | | | | | | [address] | | | | | | [phone] | | | +--------+ + + + [...] [place], | | | | | | [place] [address] | | | | | | [phone] | | | | | | | | +--------+---------+ + + + as of this encounter Visit Diagnoses Not on filein this encounter"
--- OUTSIDE RECORDS SUMMARY | ~2018-08-15 | XMS | Encounter Summary ---
Demographics + + + | Address | [address] | | | [place] [address] | + + + | Home Phone | | + + + | Preferred Language | Unknown | + + + | Marital Status | | + + + | Islam Affiliation | Unknown | + + + | Race | Unknown | + + + | Ethnic Group | Unknown | + + + Author + + + | Author | [email or web address] | + + + | Organization | [email or web address] | + + + | Address | Unknown | + + + | Phone | Unavailable | + + + Support + + + + + | Name | Relationship | Address | Phone | + + + + + | Parker Myles | ECON | [address] | | | | | [place] | | | | | [address] | | + + + + + Care Team Providers + +------+ + | Care Proof Machine Operator Supervisor Name | Role | Phone | [...] + | 07/06/ | Documentati | [facility] [place] | Stephenie Pichardo, | Other ([place] | | 2019 | on Only | Cardiology [place] | ADOPTION AGENT | Family Medicine) | | | | [address] | | | | | | [place] | | | | | | [address] | | | | | | [phone] | | | +--------+ + + + [...] [place], | | | | | | [place] [address] | | | | | | [phone] | | | | | | | | +--------+---------+ + + + as of this encounter Visit Diagnoses Not on filein this encounter"
--- OUTSIDE RECORDS SUMMARY | ~2018-08-15 | XMS | Encounter Summary ---
Demographics + + + | Address | [address] | | | [place] [address] | + + + | Home Phone | | + + + | Preferred Language | Unknown | + + + | Marital Status | | + + + | Sikh Affiliation | Unknown | + + + | Race | Unknown | + + + | Ethnic Group | Unknown | + + + Author + + + | Author | [facility] | + + + | Organization | [facility] | + + + | Address | Unknown | + + + | Phone | Unavailable | + + + Support + + + + + | Name | Relationship | Address | Phone | + + + + + | Parker Myles | ECON | [address] | | | | | [place] | | | | | [address] | | + + + + + Care Team Providers + +------+ + | Care Contact Lens Blocker Name | Role | Phone | + [...] | 2019 | on Only | Cardiology [place] | | Monitor (urgent | | | | [address] | | report ) | | | | [place], [place] | | | | | | [address] | | | | | | [phone] | | | +--------+ + + + [...] | | | | | | [place] [address] | | | | | | [phone] | | | | | | | | +--------+---------+ + + + as of this encounter Visit Diagnoses Not on filein this encounter"
--- OUTSIDE RECORDS SUMMARY | ~2018-08-15 | XMS | Encounter Summary ---
Demographics + + + | Address | [address] | | | [place] [address] | + + + | Home Phone | | + + + | Preferred Language | Unknown | + + + | Marital Status | | + + + | Oriental Orthodox Affiliation | Unknown | + + + | Race | Unknown | + + + | Ethnic Group | Unknown | + + + Author + + + | Author | [facility] | + + + | Organization | [facility] | + + + | Address | Unknown | + + + | Phone | Unavailable | + + + Support + + + + + | Name | Relationship | Address | Phone | + + + + + | Parker Myles | ECON | [address] | | | | | [place] | | | | | [address] | | + + + + + Care Team Providers + +------+ + | Care Junior Business Analyst Name | Role | Phone | + [...] | | | [place] | [place] [address] | Cerebrovascular | | | | [address] | [phone] | accident (CVA) due | | | | [phone] | | to embolism of right | [...] stroke, with left hemiparesis, was taken to [facility] in [place]. She was given tPA and had an angiogram that showed no disease in her carotids or cerebral circulation, with the exception of a right middle cerebral M1 branch occlusion, attributed to a cardiogenic embolic event from her paroxysmal atrial fibrillation. Unfortun ately, starting her on oral anticoagulation, which is clearly indicated ([id number] VASc was 2 prior to her CVA, [...] Lichen sclerosis. 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 HEMATOLOGY/ONCOLOGY: No h/o bleeding disorders, DVT, [...] Anxiety disorder, unspecified Atrial fibrillation (HCC) paroxysmal, [id number] VASc 4 Cerebrovascular accident (CVA) (HCC) 06/03/2018 right frontal (MCA) embolic CVA, left nando-paresis/neglect, likely from AFib Unspecified visual disturbance EYEGLASSES Past Surgical History Procedure Laterality Date BREAST SURGERY Bilateral AUGMENTATION HYSTERECTOMY 1998 ovaries intact, had concomitant bladder repair REMOVAL IMPLANT Bilateral 03/11/2017 Procedure: REMOVAL IMPLANT; Surgeon: Jesus Bedolla MD; [facility]; Laterality: Bilateral; breast [...] | | | | | | [place] [address] | | | | | | [phone] | | | | | | | [...] + + + + | Calculated P [place] | 51 | degrees | [facility] E[facility] | + + + + + | Calculated R [place] | 49 | degrees | [facility] E[facility] | + + + + + | Calculated T [place] | 50 | degrees | [facility] EKG [...] by ICA | | | | | Armstrong Read Only, ICA | | | | | Anthony (502), editor map | | | | | KAROL SINHA ([id number]) | | | | | on 07/18/2018 12:10:03 PM | | | | | | | | + + + + + + + + + + | Performing | Address | City/State/Zipcode | Phone Number | | Organization | | | | + + + + + | [facility] | [address] | [facility] [place] [address] | | + + + + + [...]
--- OUTSIDE RECORDS SUMMARY | ~2018-08-15 | XMS | Encounter Summary ---
Demographics + + + | Address | [address] | | | [place] [address] | + + + | Home Phone | | + + + | Preferred Language | Unknown | + + + | Marital Status | | + + + | Caodaism Affiliation | Unknown | + + + | Race | Unknown | + + + | Ethnic Group | Unknown | + + + Author + + + | Author | [facility] | + + + | Organization | [facility] | + + + | Address | Unknown | + + + | Phone | Unavailable | + + + Support + + + + + | Name | Relationship | Address | Phone | + + + + + | Parker Myles | ECON | [address] | | | | | [place] | | | | | [address] | | + + + + + Care Team Providers + +------+ + | Care Lace Roller Operator Name | Role | Phone | + [...] + | 01/29/ | Telephone | [facility] [place] | Noemy Bae DO | Atrial Fibrillation | | 2019 | | Cardiology [place] | [address] | | | | | [address] | [place], [place] | | | | | [place], [place] | [address] | | | | | [address] | | | | | | [phone] | | | +--------+ + + + [...] | | | | | | [place] [address] | | | | | | [phone] | | | | | | | | +--------+---------+ + + + as of this encounter Visit Diagnoses Not on filein this encounter"
[~2018-08-15 05:23] MED LIST changes: +ASPIRIN325 MG PO; +FLECAINIDE ACET50 MG PO; +LIPITOR10 MG PO
--- OUTSIDE RECORDS SUMMARY | 2018-08-15 05:26 | XMS ---
PreManage Notification: AINSLEY FRANCOIS Security Senior Geologist Events No recent Security Events currently on file CRITERIA MET - [facility] CARE PROVIDERS UGO FRIAS [facility] 06/03/2018-Current PHONE: [phone] Jamil has no Care Guidelines for this patient. EJunior VISIT COUNT (12 MO.) 3 TEOFILO Lopez TOTAL 3 NOTE: Visits indicate total known visits. ED/UCC VISIT TRACKING (12 MO.) 08/15/2018 05:23 [facility] [place] TYPE: Emergency COMPLAINT: - IRREGULAR HEART BEAT, BLOOD PRESSURE PROBLEM 06/26/2018 07:46 [facility] [place] TYPE: Emergency COMPLAINT: - STROKE SYMPTOMS DIAGNOSES: - Unspecified atrial fibrillation - Latex allergy status - USP (current) use of aspirin - Personal history of nicotine dependence - Other equipment operator intermodal yard (current) drug therapy - Personal history of transient ischemic attack (TIA), and cerebral infarction without residual deficits - Essential (primary) hypertension 06/03/2018 12:26 [facility] [place] TYPE: Emergency COMPLAINT: - STROKE SYMPTOMS DIAGNOSES: - Latex allergy status - equipment operator intermodal yard (current) use of aspirin - Weakness - Unspecified atrial fibrillation - Personal history of nicotine dependence - Cerebral infarction, unspecified - Other fpc (current) drug therapy INPATIENT VISIT TRACKING (12 MO.) 06/03/2018 17:56 [facility] [place] TYPE: Neuro Surgery DIAGNOSES: - Cerebral infarction due to unspecified occlusion or stenosis of right middle cerebral artery - Paroxysmal atrial fibrillation - Cerebral infarction, unspecified 06/03/2018 16:45 [facility] [place] TYPE: Surgery DIAGNOSES: - Cerebral infarction due to thrombosis of unspecified precerebral artery [id number]
[2018-08-15] MEDS ORDERED: ELIQUIS5 MG PO (05:33)
[2018-08-15] MEDS ORDERED: DILT-XR120 MG PO (05:34)
[2018-08-15] MEDS ORDERED: BUSPIRONE HCL5 MG PO (05:37)
--- NOTE | 2018-08-15 17:03 | EKG ---
[facility] [address] [facility] [place] [address] Signed Atrial fibrillation with rapid ventricular response Nonspecific T wave abnormality Abnormal ECG When compared with ECG of 26-JUN-2018 08:21, Atrial fibrillation has replaced Sinus rhythm Vent. rate has increased BY 83 BPM Nonspecific T wave abnormality now evident in Lateral leads Confirmed by YANET SHERMAN DO ([id number]) on 08/15/2018 5:03:42 PM Electronically Signed By: YANET SHERMAN DO 08/15/18 1703 PATIENT NAME: AINSLEY FRANCOIS Electrocardiogram DATE OF : 46 PHYSICIAN: YANET SHERMAN DO REPORT #: [id number] REPORT IS CONFIDENTIAL AND NOT TO BE RELEASED WITHOUT AUTHORIZATION
== END 2018-08-15 07:21 | disposition home or self-care (01) ==
LOC: ED 05:23
DX: I48.91 Unspecified atrial fibrillation (principal); Z86.73 Personal history of transient ischemic attack (TIA), and cerebral infarction without residual deficits; Z91.040 Latex allergy status; Z79.899 Other long term (current) drug therapy
CPT/HCPCS: 71045; 80053; 83735; 84484; 85025; 93005; 93010; 96360; 99285-25; J7030